=== PATIENT | male | born 1980 | race Caucasian/White ===

== ENCOUNTER 2022-05-29 19:43 | Observation (INO) ==
[2022-05-29] MEDS ORDERED: 0.9 % Sodium Chloride 1,000 ML IV ONE (23:54)
[2022-05-30] MEDS ORDERED: Simethicone 40 MG/0.6 ML MLS IR ONE (08:41)
[2022-05-30] MEDS ORDERED: *HR* FentaNYL (PF) 100 MCG/2 ML VIAL ONE (08:42)
[2022-05-30] MEDS ORDERED: *HR* Midazolam HCl 2 MG/2 ML VIAL ONE (08:42)
[2022-05-30] MEDS ORDERED: *HR* Propofol 200 MG/20 ML VIAL IVP ONE (08:43)
[2022-05-30] MEDS ORDERED: Ondansetron 4 MG/2 ML VIAL ONE (08:44)
[2022-05-30] MEDS ORDERED: Lidocaine -MPF 2% 5 ML VIAL ONE (08:44)
[2022-05-30] MEDS ORDERED: *HR* Succinylcholine 200 MG/10 ML VIAL IVP ONE (08:45)
[2022-05-30] MEDS ORDERED: Lidocaine HCL 4 ML Topical Solution (Laryng-O-Jet Kit Sterile Pak) TP ONE (09:12)
[2022-05-30 09:55] VITALS: TEMP 97.8
[2022-05-30 11:44] VITALS: BP 125/79; PULSE 97; O2SAT 100
== END 2022-05-30 12:49 | disposition home or self-care (01) ==
LOC: EMEROOARM 19:43 → 3ANU 19:43
PROVIDERS: ADMIT Surgery; ATTEND Surgery